=== PATIENT | female | born 1935 | race Caucasian/White ===

== ENCOUNTER 2017-03-08 10:07 | Outpatient (CLI) | payer MEDICARE, OTHER ==
--- NOTE | 2017-03-08 12:40 | XRAY Report ---
SINGLE AND DOUBLE CONTRAST UPPER GI: 03/08/2017 CLINICAL INDICATION: Dysphagia. FINDINGS: Single and double contrast upper GI was performed. The esophagus is normal in caliber. No esophageal ulceration, mass lesion, or stricturing is identified. There is a moderate hiatal hernia, which produced reflux throughout the course of the study. The stomach demonstrates a normal fold pattern. No gastric ulceration or mass lesion is present. The duodenal cap distends normally. The duodenal C-loop is unremarkable. Contrast passed freely into more distal small bowel loops. IMPRESSION: MODERATE SLIDING HIATAL HERNIA, PRODUCING REFLUX. NO EVIDENCE OF ULCER OR MASS LESION. FLUOROSCOPY TIME: 3 MINUTES 37 SECONDS; 30 SPOT IMAGES OBTAINED. JOB #: [id number] EXT JOB #: [id number] BECKY
== END 2017-03-08 10:08 | disposition home or self-care (01) ==
LOC: DI 10:07
PROVIDERS: ATTEND Family Medicine
DX: K44.9 Diaphragmatic hernia without obstruction or gangrene (principal); K21.9 Gastro-esophageal reflux disease without esophagitis
CPT/HCPCS: 74246

== ENCOUNTER 2017-05-22 10:05 | Outpatient (CLI) | payer MEDICARE, OTHER | END 2017-05-22 10:06 | disposition home or self-care (01) | LOC: DI 10:05 | PROVIDERS: ATTEND Internal Medicine | DX: Z53.9 Procedure and treatment not carried out, unspecified reason (principal) ==

== ENCOUNTER 2017-06-14 17:25 | Outpatient (CLI) | payer MEDICARE, OTHER ==
--- NOTE | 2017-06-14 18:03 | CT Preliminary Report ---
Exam: CT CERVICAL SPINE W/O IMPRESSION: 1. No fracture or malalignment in the cervical spine. 2. Mildly comminuted and displaced intra-articular fracture at the medial aspect left clavicle partia lly visualized. 3. Mild to moderate degenerative disk and facet changes. 4. Disk osteophyte complex at C5-C6 results in mild central canal stenosis. 5. Mild neural foramen stenosis at C3-C4 bilaterally and C7-T1 bilaterally. [facility] SITE ID: [id number]
--- NOTE | 2017-06-14 18:10 | CT Report ---
EXAM: CT CERVICAL SPINE WITHOUT CONTRAST DATE: 06/14/2017 05:41 PM. HISTORY: Left clavicle pain. Left elbow pain, neck pain. COMPARISONS: None. TECHNIQUE: Thin-section axial images were acquired of the cervical spine without contrast. Post-proce ssing: Coronal and sagittal reformats. Other: None. In accordance with CT protocol optimization, one or more of the following dose reduction techniques w ere utilized for this exam: automated exposure control, adjustment of mA and/or KV based on patient s ize, or use of iterative reconstructive technique. FINDINGS: Alignment: No scoliosis or spondylolisthesis. Bones: No fracture or bone lesion in the cervical spine. Mildly comminuted and displaced fracture at the medial aspect left clavicle partially visualized. This likely extends into the sternoclavicular j oint. Interspace Levels/Facets: Mild disk height loss and small to moderate osteophytes at C5-C6 and C6-C7. C1-C2: Minimal degenerative change anteriorly. C2-C3: Unremarkable. C3-C4: Small disk/osteophyte complex with small central disk protrusion. Mild bilateral facet hypertr ophy. Mild bilateral neural foramen stenosis. C4-C5: Small disk/osteophyte complex with small central disk protrusion. Mild bilateral facet hypertr ophy. No stenosis. C5-C6: Small to moderate disk/osteophyte complex with focal right paracentral component. Mild central canal stenosis. C6-C7: Small disk/osteophyte complex. No stenosis. C7-T1: Mild bilateral facet hypertrophy. Mild bilateral neural foramen stenosis. Musculature: No fatty atrophy. Other: Moderate to severe atherosclerosis in the bilateral carotid siphons. Mild to moderate atherosc lerosis in the carotid arteries. Minimal atelectasis or scar in the medial aspect right upper lobe. Mild degenerative change at the temporomandibular joints, left greater than right. IMPRESSION: 1. No fracture or malalignment in the cervical spine. 2. Mildly comminuted and displaced intra-articular fracture at the medial aspect left clavicle partia lly visualized. 3. Mild to moderate degenerative disk and facet changes. 4. Disk/osteophyte complex at C5-C6 results in mild central canal stenosis. 5. Mild neural foramen stenosis at C3-C4 bilaterally and C7-T1 bilaterally. [facility] Referring Provider Line: [phone] SITE ID: [id number]
--- NOTE | 2017-06-14 18:16 | XRAY Report ---
EXAM: LEFT CLAVICLE RADIOGRAPHY EXAM DATE: 06/14/2017 06:05 PM. CLINICAL HISTORY: L CLAVICLE PAIN. L ELBOW PAIN, NECK PAIN. COMPARISON: None. TECHNIQUE: 2 views. FINDINGS: Bones: Normal. No fracture or bone lesion. Joints: Minor degenerative changes at the acromioclavicular joint. No dislocations. Soft Tissues: Normal. No soft tissue swelling. IMPRESSION: Normal clavicle radiography. [facility] Referring Provider Line: [phone] SITE ID: [id number]
--- NOTE | 2017-06-14 18:17 | XRAY Report ---
EXAM: LEFT HUMERUS RADIOGRAPHY EXAM DATE: 06/14/2017 06:05 PM. CLINICAL HISTORY: L CLAVICLE PAIN. L ELBOW PAIN, NECK PAIN. COMPARISON: None. TECHNIQUE: 2 views. FINDINGS: Bones: Normal. No fractures or bone lesions. Joints: Normal. No effusions or subluxations in the visualized shoulder or elbow joints. Soft Tissues: Normal. No soft tissue swelling. IMPRESSION: Normal humerus radiography. [facility] Referring Provider Line: [phone] SITE ID: [id number]
--- NOTE | 2017-06-14 18:20 | XRAY Report ---
EXAM: LEFT SHOULDER RADIOGRAPHY EXAM DATE: 06/14/2017 06:05 PM. CLINICAL HISTORY: L CLAVICLE PAIN. L ELBOW PAIN, NECK PAIN. COMPARISON: None. TECHNIQUE: 3 views. FINDINGS: Bones: Normal. No fracture or bone lesion. Joints: The glenohumeral and acromioclavicular joints are normal. Soft tissues: Left axillary clips noted. No soft tissue swelling. IMPRESSION: Normal shoulder radiography. [facility] Referring Provider Line: [phone] SITE ID: [id number]
--- NOTE | 2017-06-14 18:20 | XRAY Report ---
EXAM: LEFT ELBOW RADIOGRAPHY EXAM DATE: 06/14/2017 06:05 PM. CLINICAL HISTORY: L CLAVICLE PAIN. L ELBOW PAIN, NECK PAIN. COMPARISON: None. TECHNIQUE: 3 views. FINDINGS: Bones: Normal. No fractures or bone lesions. Joints: Normal. No effusion. No subluxation. Soft Tissues: Normal. No soft tissue swelling. IMPRESSION: Normal elbow radiography. [facility] Referring Provider Line: [phone] SITE ID: [id number]
--- NOTE | 2017-06-14 19:07 | CT Preliminary Report ---
Exam: CT HEAD W/O IMPRESSION: Generalized age-related cortical atrophic changes without evidence of acute intracranial abnormality. [facility] SITE ID: [id number]
--- NOTE | 2017-06-14 19:07 | CT Report ---
EXAM: CT HEAD EXAM DATE: 06/14/2017 05:41 PM. CLINICAL HISTORY: L CLAVICLE PAIN. L ELBOW PAIN, NECK PAIN. Neck and posterior head pain. Fall off a ladder. COMPARISON: None. TECHNIQUE: Multiaxial CT images were obtained from the foramen magnum to the vertex. Reformats: Coron al. IV contrast: None. In accordance with CT protocol optimization, one or more of the following dose reduction techniques w ere utilized for this exam: automated exposure control, adjustment of mA and/or KV based on patient s ize, or use of iterative reconstructive technique. FINDINGS: Parenchyma: No intraparenchymal hemorrhage. No evidence of mass, midline shift, or CT findings of acu te infarction. Chau-white differentiation is distinct. Mild bilateral chronic microangiopathic white matter changes are evident. Extraaxial Spaces: Normal for age. No subdural or epidural collections identified. Ventricles: The ventricles and cortical sulci are mildly enlarged, consistent with age-related tissue loss. Sinuses and orbits: Imaged paranasal sinuses, orbits, and mastoids show no significant abnormality. Bones: No evidence of fracture or calvarial defect. IMPRESSION: Generalized age-related cortical atrophic changes without evidence of acute intracranial abnormality. [facility] Referring Provider Line: [phone] SITE ID: [id number]
[2017-06-14 19:08] LABS: CALCIUM 9.5 mg/dL (8.5-10.3); CREATININE 1.1 mg/dL (0.4-1.0)
== END 2017-06-14 17:26 | disposition home or self-care (01) ==
LOC: DI 17:25
PROVIDERS: ATTEND Specialist
DX: M50.21 Other cervical disc displacement, high cervical region (principal); M47.892 Other spondylosis, cervical region; M50.31 Other cervical disc degeneration, high cervical region; M25.522 Pain in left elbow; S42.012A Anterior displaced fracture of sternal end of left clavicle, initial encounter for closed fracture
CPT/HCPCS: 36415; 70450; 72125; 80048

== ENCOUNTER 2017-06-24 15:50 | Emergency (ER) | payer MEDICARE, OTHER ==
--- NOTE | 2017-06-24 17:33 | XRAY Preliminary Report ---
Exam: XR CHEST 2 VIEW X-RAY IMPRESSION: Normal 2-view chest radiography. [facility] SITE ID: [id number]
--- NOTE | 2017-06-24 17:36 | XRAY Report ---
EXAM: CHEST RADIOGRAPHY EXAM DATE: 06/24/2017 05:17 PM. CLINICAL HISTORY: Shortness of breath. COMPARISON: None. TECHNIQUE: 2 views. FINDINGS: Lungs/Pleura: No focal opacities evident. No pleural effusion. No pneumothorax. Normal volumes. Mediastinum: Heart and mediastinal contours are unremarkable. Other: Prior left breast surgery. Old left clavicle fracture. IMPRESSION: Normal 2-view chest radiography. [facility] Referring Provider Line: [phone] SITE ID: [id number]
[2017-06-24] MEDS ORDERED: IPRATROPIUM/ALBUTEROL 3 ML NEB INH STA (18:24)
--- NOTE | 2017-06-24 18:26 | ED Physician Documentation ---
PD HPI DYSPNEA - Stated complaint Stated Complaint: SOA - Chief complaint Chief Complaint: Resp - History obtained from History obtained from: Patient - History of Present Illness Timing - onset: Other (She has had a nonproductive cough with shortness of breath for the last week to 10 days. No fevers but she has had sweats after she takes ibuprofen. She has a history of asthma but no other heart or lung problems.) Review of Systems Constitutional: reports: Sweats. denies: Fever, Chills Nose: denies: Rhinorrhea / runny nose, Congestion Cardiac: denies: Chest pain / pressure, Palpitations Respiratory: reports: Dyspnea, Cough GI: denies: Abdominal Pain PD PAST MEDICAL HISTORY - Past Medical History Cardiovascular: Hypertension, High cholesterol Musculoskeletal: Chronic back pain - Past Surgical History /[employer]: Mastectomy, Breast implants - Present Medications Home Medications: Ambulatory Orders Medication Instructions Recorded Confirmed Fluticasone [Flonase] 1 sprays HUGO DAILY PRN 11/10/12 05/08/17 Glucosa Henriquez 2Kcl/Chondroitin Henriquez 1 each PO DAILY 11/10/12 05/08/17 [Glucosamine & Chondroitin Cap] Latanoprost [Xalatan] 2.5 ml OP HS 11/10/12 05/08/17 Olmesartan/Hydrochlorothiazide 1 each PO DAILY 11/10/12 05/08/17 [Benicar Hct 20-12.5 mg Tablet] Simvastatin [Zocor] 20 mg PO HS 11/10/12 05/08/17 Calcium Carbonate/Vitamin D3 1 each PO DAILY 03/24/14 05/08/17 [Calcium 600 + Vit D Tablet] Ubidecarenone [Coq10] 300 mg ORAL DAILY 03/24/14 05/08/17 Albuterol Sulfate [Proventil Hfa 1 - 2 puffs IH Q4H PRN #1 06/24/17 Inhaler] hfa.aer.ad Doxycycline Hyclate 100 mg PO BID #14 tablet 06/24/17 Fexofenadine/Pseudoephedrine 1 each PO 06/24/17 [Felicity-D 24 Hour Tablet] guaiFENesin/CODEINE [Robitussin AC] 5 - 10 ml PO Q6H PRN #120 ml 06/24/17 - Allergies Allergies/Adverse Reactions: Allergies Allergy/AdvReac Type Severity Reaction Status Date / Time azithromycin Allergy Rash Verified 06/24/17 15:59 PD ED PE NORMAL - Vitals Vital signs reviewed: Yes - General General: Alert and oriented X 3, No acute distress, Other (Frequent wet cough) - Neck Neck: No JVD - Cardiac Cardiac: RRR, No murmur - Respiratory Respiratory: Other (Rhonchorous throughout and wheezy, no focal findings) - Abdomen Abdomen: Non tender - Extremities Extremities: No edema, No calf tenderness / cord - Neuro Neuro: Alert and oriented X 3, Normal speech - Psych Psych: Normal mood, Normal affect Results - Vitals Vitals: Vital Signs - 24 hr 06/24/17 06/24/17 06/24/17 15:54 18:23 18:36 Temperature 36.8 C 37.2 C Heart Rate 115 H 115 H 117 H Respiratory 16 20 20 Rate Blood Pressure 145/61 H 168/65 H 106/79 O2 Saturation 92 94 92 06/24/17 18:50 Temperature Heart Rate 116 H Respiratory 18 Rate Blood Pressure O2 Saturation Oxygen O2 Source Room air - EKG (time done) 1558 Rate: Rate (enter#) (116) Rhythm: Sinus tachycardia (With PACs) [place]: LAD Intervals: Normal HI QRS: Normal Ischemia: Normal ST segments Computer interpretation: Agree with computer - Labs Labs: Laboratory Tests 06/24/17 06/24/17 18:38 18:38 WBC 11.0 H RBC 3.63 L Hgb 11.3 L Hct 33.4 L MCV 91.9 MCH 31.1 H MCHC 33.9 RDW 14.4 Plt Count 306 MPV 6.6 L Neut # 9.2 H Lymph # 1.0 L Cavalier # 0.8 Eos # 0.0 Baso # 0.0 Absolute Nucleated RBC 0.00 Nucleated RBC % 0.0 Sodium 126 L Potassium 4.2 Chloride 89 L Carbon Dioxide 25 Anion Gap 12.0 BUN 26 H Creatinine 1.1 H Estimated GFR (MDRD) 48 L Glucose 103 H Calcium 8.9 Total Bilirubin 0.5 AST 63 H ALT 34 Alkaline Phosphatase 49 Total Protein 7.3 Albumin 3.7 Globulin 3.6 Albumin/Globulin Ratio 1.0 Lipase 22 - Rads (name of study) 2v chest Radiology: EMP read contemporaneously (NAD) PD MEDICAL DECISION MAKING - ED course ED course: 82-year-old woman with what sounds like bronchitis, clear chest x-ray mild leukocytosis so I will err on the site of antibiotics. Much better after breathing treatment here. Departure - Departure Disposition: 01 Home, Self Care Clinical Impression: Bronchitis Condition: Good Record reviewed to determine appropriate education?: Yes Instructions: ED Bronchitis Asthmatic Prescriptions: Albuterol Sulfate [Proventil Hfa Inhaler] 1 - 2 puffs IH Q4H PRN #1 hfa.aer.ad PRN Reason: Cough Doxycycline Hyclate 100 mg PO BID #14 tablet guaiFENesin/CODEINE [Robitussin AC] 5 - 10 ml PO Q6H PRN #120 ml PRN Reason: Cough Comments: Call your doctor to arrange a follow-up appointment, make the next available appointment. In the interim, return anytime if worse or if new symptoms develop.
[2017-06-24 18:38] VITALS: BP 106/79
[2017-06-24 18:44] LABS: BASOPHILS % (AUTO) 0.4 %; EOSINOPHILS % (AUTO) 0.1 %; HGB - HEMOGLOBIN 11.3 g/dL (12.0-16.0); LYMPHOCYTES % (AUTO) 9.1 %; MEAN CORPUSCULAR HEMOGLOBIN 31.1 pg (27.0-31.0); MEAN CORPUSCULAR HGB CONC 33.9 g/dL (32.0-36.0); MEAN CORPUSCULAR VOLUME 91.9 fL (81.0-99.0); MEAN PLATELET VOLUME 6.6 fL (7.9-10.8); MONOCYTES # (AUTO) 0.8 10^3/uL (0.0-1.0); NEUTROPHILS # (AUTO) 9.2 10^3/uL (1.5-6.6); NEUTROPHILS % (AUTO) 83.4 %; PLT - PLATELET COUNT 306 10^3/uL (130-450); RED BLOOD COUNT 3.63 10^6/uL (4.20-5.40); RED CELL DISTRIBUTION WIDTH 14.4 % (12.0-15.0)
[2017-06-24 18:55] LABS: ALBUMIN 3.7 g/dL (3.2-5.5); BILIRUBIN,TOTAL 0.5 mg/dL (0.2-1.0); CALCIUM 8.9 mg/dL (8.5-10.3); CREATININE 1.1 mg/dL (0.4-1.0); TOTAL PROTEIN 7.3 g/dL (6.7-8.2)
== END 2017-06-24 19:21 | disposition home or self-care (01) ==
LOC: ED 15:50
DX: J40 Bronchitis, not specified as acute or chronic (principal); D72.829 Elevated white blood cell count, unspecified; J45.909 Unspecified asthma, uncomplicated; I10 Essential (primary) hypertension; E78.00 Pure hypercholesterolemia, unspecified
CPT/HCPCS: 36415; 71046; 80053; 83690; 85025; 93005; 94640; 99283; J7620

== ENCOUNTER 2017-08-08 09:56 | Outpatient (CLI) | payer MEDICARE, OTHER ==
--- NOTE | 2017-08-08 11:58 | Mammography Report ---
RIGHT DIAGNOSTIC MAMMOGRAM: 08/08/2017 UNILATERAL RIGHT BREAST ULTRASOUND: 08/08/2017. COMPARISON: Mammogram 05/22/2016. INDICATION: Right breast lump. TECHNIQUE: Unilateral right CC and MLO breast views. Focused sonography of the right breast. FINDINGS: There are scattered fibroglandular densities. No dominant mass, architectural distortion or concerning cluster of microcalcifications are seen. There are no findings to correspond with a palpable abnormality. Focused sonography of the right breast at 6 o'clock shows no mass, abnormal fluid collection, or dilated duct. No other sonographic abnormality. IMPRESSION: 1. BI-RADS CATEGORY 1. NEGATIVE. 1. RECOMMEND ANNUAL MAMMOGRAPHY IN THE ABSENCE OF ADDITIONAL CLINICAL CONCERNS. TD: 08/08/2017 11:58 BECKY
--- NOTE | 2017-08-09 15:15 | Ultrasound Report ---
UNILATERAL RIGHT BREAST ULTRASOUND: 08/08/2017 COMPARISON: No comparison. INDICATION: Right breast lump at 6 o'clock. TECHNIQUE: Sonographic evaluation of the right breast at 6 o'clock position. FINDINGS: No mass, abnormal fluid collection, or dilated duct is seen. No other sonographic abnormality. IMPRESSION 1. BI-RADS CATEGORY 1. NEGATIVE. 2. RECOMMEND ANNUAL MAMMOGRAM. TD: 08/08/2017 11:47 [facility]
== END 2017-08-08 09:57 | disposition home or self-care (01) ==
LOC: DI 09:56
PROVIDERS: ATTEND Internal Medicine
DX: Z85.3 Personal history of malignant neoplasm of breast (principal)
CPT/HCPCS: 76642

== ENCOUNTER → 2018-03-31 | Outpatient (CLI) | payer MEDICARE, OTHER ==
[2018-03-31 12:29] LABS: BASOPHILS % (AUTO) 0.5 %; EOSINOPHILS # (AUTO) 0.2 10^3/uL (0.0-0.7); EOSINOPHILS % (AUTO) 3.1 %; HGB - HEMOGLOBIN 12.5 g/dL (12.0-16.0); LYMPHOCYTES # (AUTO) 2.1 10^3/uL (1.5-3.5); LYMPHOCYTES % (AUTO) 33.3 %; MEAN CORPUSCULAR HEMOGLOBIN 31.7 pg (27.0-31.0); MEAN CORPUSCULAR HGB CONC 34.9 g/dL (32.0-36.0); MEAN PLATELET VOLUME 7.2 fL (7.9-10.8); MONOCYTES # (AUTO) 0.9 10^3/uL (0.0-1.0); MONOCYTES % (AUTO) 14.7 %; NEUTROPHILS # (AUTO) 3.1 10^3/uL (1.5-6.6); NEUTROPHILS % (AUTO) 48.4 %; PLT - PLATELET COUNT 299 10^3/uL (130-450); RED BLOOD COUNT 3.93 10^6/uL (4.20-5.40); RED CELL DISTRIBUTION WIDTH 13.7 % (12.0-15.0); WHITE BLOOD COUNT 6.4 x10^3/uL (4.8-10.8)
[2018-03-31 12:55] LABS: ALBUMIN/GLOBULIN RATIO 1.2 (1.0-2.2); ALKALINE PHOSPHATASE 58 IU/L (42-121); ALT ALANINE AMINOTRANSFERASE 23 IU/L (10-60); AST ASPARTATE AMINOTRANSFERASE 30 IU/L (10-42); BILIRUBIN,TOTAL 0.7 mg/dL (0.2-1.0); BUN - BLOOD UREA NITROGEN 21 mg/dL (6-20); CALCIUM 9.5 mg/dL (8.5-10.3); CARBON DIOXIDE - CO2 30 mmol/L (21-32); CHLORIDE 97 mmol/L (101-111); CHOL/HDL RATIO 3.5 (<4.4); CHOLESTEROL 167 mg/dL; CREATININE 0.5 mg/dL (0.4-1.0); GFR - MDRD 118 (>89); GLUCOSE 104 mg/dL (70-100); HDL CHOLESTEROL 48 mg/dL; LDL CHOLESTEROL,CALCULATED 93 mg/dL; LDL/HDL RATIO 1.9 (<4.4); SODIUM 134 mmol/L (135-145); TOTAL PROTEIN 7.3 g/dL (6.7-8.2); VLDL CHOLESTEROL 26 mg/dL
== END ==
LOC: LAB.WCP 08:00
PROVIDERS: ATTEND Family Medicine
DX: I10 Essential (primary) hypertension (principal); E78.5 Hyperlipidemia, unspecified
CPT/HCPCS: 36415; 80053; 80061; 83721; 85025

== ENCOUNTER 2018-05-10 13:19 | Outpatient (CLI) | payer MEDICARE, OTHER ==
--- NOTE | 2018-05-11 12:08 | Ultrasound Report ---
Reason: RT HIP PAIN Procedure Date: 05/10/2018 Accession Number: [id number] / [id number] Procedure: US - Ext Limited Non Vascular CPT Code: FULL RESULT: EXAM: HERNIA ULTRASOUND EXAM DATE: 05/10/2018 02:01 PM. CLINICAL HISTORY: RT HIP PAIN. COMPARISON: None. TECHNIQUE: Real-time sonographic imaging of the inguinal canals and vascular structures, including color-flow, was performed by the applied exercise physiologist. Multiple investment representative static images were saved for review. FINDINGS: Hernia: None identified with or without Valsalva. Soft Tissues: Normal. No fluid collections or adenopathy. Other: No mass or adenopathy. IMPRESSION: 1. No hernia identified. 2. No mass or adenopathy. [facility]
--- NOTE | 2018-05-11 12:09 | Ultrasound Report ---
Reason: PELVIC PAIN Procedure Date: 05/10/2018 Accession Number: [id number] / [id number] Procedure: US - Pelvic Complete CPT Code: FULL RESULT: EXAM: PELVIC ULTRASOUND EXAM DATE: 05/10/2018 01:28 PM. CLINICAL HISTORY: PELVIC PAIN. COMPARISON: None. TECHNIQUE: Realtime transabdominal pelvic scan performed to identify the uterus and adnexa and as an overview of other pelvic structures, with static image documentation. FINDINGS: Uterus: 5.8 x 2.4 x 3.6 cm, volume 26.2 cc. Anteverted position. Normal overall size and echotexture. Masses: None. Endometrium: 5.1 mm. Normal. Cervix: Unremarkable. Right Ovary: Ovary not seen. No adnexal abnormality. Limitation secondary to bowel gas. Left Ovary: Ovary not seen. No adnexal abnormality. Limitation secondary to bowel gas. Free Fluid: None. Other: None. IMPRESSION: 1. Neither will be seen. No adnexal lesions. 2. No uterine mass. 3. Normal endometrium. [facility]
== END 2018-05-10 13:20 | disposition home or self-care (01) ==
LOC: DI 13:19
PROVIDERS: ATTEND Family Medicine
DX: R10.2 Pelvic and perineal pain (principal); M25.551 Pain in right hip
CPT/HCPCS: 76856; 76882

== ENCOUNTER 2018-07-09 13:14 | Outpatient (CLI) | payer MEDICARE, OTHER ==
--- NOTE | 2018-07-10 17:53 | DEXA Report ---
Reason: OSTEOPENIA Procedure Date: 07/09/2018 Accession Number: [id number] / [id number] Procedure: DEX - Dexa Spine and/or Hip CPT Code: FULL RESULT: EXAM: Dexa Spine and/or Hip DATE: 07/09/2018 2:01 PM CLINICAL HISTORY: OSTEOPENIA on DEXA from 2012. Ovarian failure. TECHNIQUE: Dual energy x-ray absorptiometry (DXA) was performed on a Driblet System. Regions measured are the AP Spine, femoral neck, and if needed forearm. COMPARISON: 02/04/2013 In accordance with the International Society for Clinical Densitometry (ISCD) guidelines, data from previous exams may be reanalyzed using current recommendations and techniques. This is done to allow a more accurate basis for comparison with the current study. FINDINGS: The data for the lumbar spine is as follows: BMD (g/cm/cm) T-SCORE Z-SCORE REGION L1 0.991 -1.2 0.6 L2 1.049 -1.3 0.5 L3 1.114 -0.7 1.0 L4 1.063 -1.1 0.6 TOTAL 1.075 -1.0 0.7 NOTE: All evaluable vertebrae are used for classification The data for the hip is as follows: BMD (g/cm/cm) T-SCORE Z-SCORE REGION Neck 0.956 -0.6 1.5 TOTAL 0.920 -0.7 1.3 NOTE: The femoral neck or total proximal femur, whichever is lowest, is used for classification. IMPRESSION: THE WHO CLASSIFICATION BASED ON THE INTERNATIONAL REFERENCE STANDARD IS NORMAL. THE FRACTURE RISK IS NOT INCREASED. RECOMMENDATION: Patients with diagnosis of osteoporosis or osteopenia should have regular bone mineral density assessment. For those eligible for Medicare, routine testing is allowed once every 2 years. Testing frequency can be increased for patients who have rapidly progressing disease or for those who are receiving medical therapy to restore bone mass. COMMENT: World Health Organization (WHO) definitions for osteoporosis and osteopenia: NORMAL BMD: T-score at -1.0 or higher, fracture risk is low OSTEOPENIA BMD: T-score between -1.0 and -2.5, fracture risk is increased. OSTEOPOROSIS BMD: T-score at -2.5 or lower, fracture risk is high. National Osteoporosis Foundation recommends: 1. Obtain adequate dietary calcium (at least 1200 mg per day) and vitamin D (400-800 international units per day). 2. Participate, as appropriate, in regular weightbearing and muscle-strengthening exercise. 3. Avoid tobacco use and reduce alcohol and caffeine intake. 4. For more detailed information see the website at www.NOF.org.
== END 2018-07-09 13:15 | disposition home or self-care (01) ==
LOC: DI 13:14
PROVIDERS: ATTEND Internal Medicine
DX: M81.0 Age-related osteoporosis without current pathological fracture (principal)
CPT/HCPCS: 77080

== ENCOUNTER 2018-08-26 15:51 | Outpatient (CLI) | payer MEDICARE, OTHER ==
--- NOTE | 2018-08-26 16:55 | Mammography Report ---
Reason: Annual Screening Procedure Date: 08/26/2018 Accession Number: [id number] / [id number] Procedure: FABIOLA - Screening Mammo Right w/Gino CPT Code: FULL RESULT: EXAM: Screening Mammo Right w/Gino DATE: 08/26/2018 4:44 PM CLINICAL HISTORY: Routine screening. Prior history of treated left breast cancer status post mastectomy. Family history of breast cancer in mother in her 60s. TECHNIQUE: (R) - Right unilateral CC and MLO views were obtained. COMPARISON: 08/08/2017, 05/22/2016 PARENCHYMAL PATTERN: (A) - The breasts demonstrate scattered fibroglandular densities bilaterally. FINDINGS: Right breast: There are operative changes after reduction mammoplasty. There are no suspicious masses, calcifications, or areas of distortion. IMPRESSION: Benign findings. BI-RADS category 2 RECOMMENDATION: (ANNUAL) - Recommend routine annual screening mammography. BI-RADS CATEGORY: (2) - Benign Findings STANDARD QUALIFYING STATEMENTS: 1. This examination was not reviewed with the aid of Computer-Aided Detection (CAD). 2. A negative or benign imaging report should not preclude biopsy if clinically suspicious findings are present. 3. Dense breasts may obscure an underlying neoplasm. 4. This examination was reviewed with the aid of 3D breast imaging (tomosynthesis).
== END 2018-08-26 15:52 | disposition home or self-care (01) ==
LOC: DI 15:51
PROVIDERS: ATTEND Nurse Practitioner Adult Health
DX: Z12.31 Encounter for screening mammogram for malignant neoplasm of breast (principal); Z85.3 Personal history of malignant neoplasm of breast; Z90.12 Acquired absence of left breast and nipple
CPT/HCPCS: 77063

== ENCOUNTER 2018-11-19 14:40 | Outpatient (CLI) | payer MEDICARE, OTHER ==
--- NOTE | 2018-11-19 16:35 | XRAY Report ---
Reason: BILAT CRACKLES Procedure Date: 11/19/2018 Accession Number: [id number] / [id number] Procedure: XR - Chest 2 View X-Ray CPT Code: 45982 FULL RESULT: EXAM: CHEST RADIOGRAPHY EXAM DATE: 11/19/2018 02:48 PM. CLINICAL HISTORY: BILAT CRACKLES. COMPARISON: CHEST 2 VIEW 06/24/2017 5:02 PM. TECHNIQUE: 2 views. FINDINGS: Lungs/Pleura: Patchy bibasilar opacities (left greater than right) opacities may represent atelectasis versus developing infiltrates. No pleural effusion or pneumothorax. Mediastinum: The heart is again noted to be prominent. Atherosclerotic calcifications affiliated with the aorta. Other: Multilevel degenerative changes in the thoracic spine. Surgical clips in the left axilla. IMPRESSION: Bibasilar atelectasis versus developing infiltrates (Left greater than right). [facility]
== END 2018-11-19 14:41 | disposition home or self-care (01) ==
LOC: DI 14:40
PROVIDERS: ATTEND Internal Medicine
DX: R09.89 Other specified symptoms and signs involving the circulatory and respiratory systems (principal); Z85.3 Personal history of malignant neoplasm of breast
CPT/HCPCS: 71046